=== PATIENT | female | born 1950 | race Caucasian/White ===

== ENCOUNTER 2018-04-19 14:02 | Emergency (ER) | payer OTHER ==
[~2018-04-19] VITALS: Ht 152.4 cm; Wt 90.7 kg
--- NOTE | 2018-04-19 14:15 | ED NECK/BACK PAIN COMPLAINT ---
History of Present Illness General Chief Complaint: Low Back Pain/Injury Stated Complaint: LBP X 2 DAYS Source: patient Exam Limitations: no limitations Triage Note: PT TO ED C/O LOW BACK PAIN SINCE WEDNESDAY. PT WENT TO CHIROPRACTOR "HE DID A LITTLE ZAPPING AND TOLD ME TO ICE IT". PT WENT TO WORK AND PAIN GOT WORSE. DENIES INJURY. HAS BEEN TAKING ALEVE WITH NO RELIEF. Triage Nurses Notes Reviewed? yes Onset: Abrupt Duration: day(s): Timing: recent history Quality/Severity: moderate, severe Location: lumbar spine HPI: 67-year-old female comes into the emergency room for further evaluation of left lower back pain. Symptoms been going on for the past 2 days. Pain is sharp. Continuous. Nonradiating. Patient saw her chiropractor yesterday and today. hE "zaps the area", "massaged it". He told her to ice it. She reports increased pain today at work. Sharp. Continuous. (Boo KRISHNAMURTHY,Henok) Vital Signs & Intake/Output Vital Signs & Intake/Output Vital Signs Date Time Temp Pulse Resp B/P B/P Pulse O2 O2 Flow FiO2 Mean Ox Delivery Rate 04/19 1638 98.5 101 18 145/87 93 Room Air ED Intake and Output 04/20 0000 04/19 1200 Intake Total Output Total Balance Patient 200 lb Weight Weight Reported by Patient Measurement Method Allergies Coded Allergies: Iodinated Contrast- Oral and IV Dye (UNKNOWN 04/21/18) Reconcile Medications Alprazolam 0.25 MG TABLET 0.5 TAB PO BIDP PRN ANXIETY (Reported) Bupropion HCl (Bupropion XL) 150 MG TAB.ER.24H 1 TAB PO QAM MENTAL HEALTH ( Reported) Diazepam (Valium) 5 MG TABLET 1 TAB PO TID PRN back spasms Ketorolac Tromethamine 10 MG TABLET 1 TAB PO Q6P PRN back pain Patient received IM ketorolac in the emergency department Levothyroxine Sodium 100 MCG TABLET 1 TAB PO DAILY AC THYROID (Reported) Montelukast Sodium (Singulair) 10 MG TABLET 1 TAB PO DAILY ALLERGIES ( Reported) Oxycodone HCl/Acetaminophen (Percocet 5-325 MG Tablet) 5 MG-325 MG TABLET 2 TAB PO Q6P PRN pain (Stanley SHEETS,Saravanan Villalobos) Past History Travel History Traveled to [place] past 21 day No Medical History Any Pertinent Medical History? see below for history EENT: allergies Psychiatric: anxiety, depression Endocrine: hypothyroidism Surgical History Surgical History: non-contributory Psychosocial History What is your primary language Wolof Tobacco Use: Quit >30 days ago ETOH Use: denies use Illicit Drug Use: denies illicit drug use Family History Hx Contributory? No (Henok Ayala) Review of Systems Review of Systems Constitutional: Reports: no symptoms. Eyes: Reports: no symptoms. Ears, Nose, Throat, Mouth: Reports: no symptoms. Respiratory: Reports: no symptoms. Cardiovascular: Reports: no symptoms. Gastrointestinal/Abdominal: Reports: no symptoms. Musculoskeletal: Reports: see HPI. Skin: Reports: no symptoms. Neurological/Psychological: Reports: no symptoms. All Other Systems: Reviewed and Negative (Henok Ayala) Physical Exam Physical Exam General Appearance: well developed/nourished, mild distress Head: atraumatic Eyes: Bilateral: normal appearance. Ears, Nose, Throat, Mouth: hearing grossly normal, moist mucous membrane Neck: normal inspection Respiratory: no respiratory distress Back: normal inspection, tenderness left lower back Extremities: normal range of motion Motor: Deficit L4 Right: No Deficit L4 Left: No Deficit L5 Right: No Deficit L5 Left: No Deficit S1 Right: No Deficit S1 Right: No Neurologic/Psych: awake, alert, oriented x 3, normal mood/affect Skin: intact, normal color, warm/dry (Henok Ayala) Core Measures CVA/TIA Diagnosis: No (Stanley SHEETS,Saravanan Villalobos) Progress Differential Diagnosis: cauda equina syn, herniated disc, myofascial strain, sciatica Plan of Care: Orders Procedure Date/time Status URINALYSIS 04/19 1551 Complete Laboratory Tests 04/19/18 1603: Urine Color YEL, Urine Clarity CLEAR, Urine pH 7.0, Ur Specific Maxwell 1.025, Urine Protein NEG, Urine Ketones 40 H, Urine Nitrite NEG, Urine Bilirubin NEG, Urine Urobilinogen 0.2, Ur Leukocyte Esterase NEG, Ur Microscopic EXAM NOT REQUIRED, Urine Hemoglobin NEG, Urine Glucose NEG Diagnostic Imaging: Viewed by Me: CT Scan. Discussed w/RAD: CT Scan. Radiology Impression: PATIENT: CHETAN DEMPSEY PRESENT AGE: 67 PATIENT ACCOUNT NO: [id number] : 51 LOCATION: [facility] ORDERING PHYSICIAN: Henok KRISHNAMURTHY SERVICE DATE: 04/19/18 EXAM TYPE : CAT - CT LUMB SPINE WO IV CONTRAST EXAMINATION: CT LUMBAR SPINE WITHOUT CONTRAST CLINICAL INFORMATION: Low back pain. Left-sided pain. COMPARISON: None TECHNIQUE: Axial images obtained through lumbar spine. Coronal and sagittal reformatted images are performed at the CT scanner. DLP: 899.58 mGy-cm FINDINGS: The vertebrae have normal height and alignment with no fracture or bone destruction. There is no paraspinal soft tissue mass. There is vascular calcifications of the wall of the aorta with no evidence of aneurysm. There is diverticulosis of the visualized colonic bowel loops without bowel wall inflammation. The partially visualized kidneys are unremarkable. SPINAL LEVELS: There are 4 nonrib-bearing lumbar vertebrae. The L5 vertebrae is sacralized with fusion of the transverse process with the sacrum bilaterally. L1-L2: There is near complete loss of height of the vertebrae with vacuum disc phenomenon. There is subchondral sclerosis of bone and endplate spurring of the vertebrae. Facet joints are normal. There is no focal disc protrusion. There is no central canal stenosis. The neural foramina are open. L2-L3: There is near complete loss of height of the vertebrae with vacuum disc phenomenon. There is subchondral sclerosis of bone and endplate spurring of the vertebrae. Facet joints are normal. There is no focal disc protrusion. There is no central canal stenosis. The neural foramina are open. L3-L4: There is near complete loss of height of the vertebrae with vacuum disc phenomenon. There is subchondral sclerosis of bone and endplate spurring of the vertebrae. There is mild facet joint arthrosis. There is no focal disc protrusion. There is mild central canal stenosis. The neural foramina are open. L4-L5: Lumbar disc height is narrowed. There is no focal disc protrusion. There is a slight anterior listhesis of L4 on L5 measuring about 2 mm. This is due to facet joint arthrosis which is marked by joint narrowing, vacuum changes at the joint and subchondral sclerosis and spurring. There is [id number] central canal stenosis. The neural foramina are open. L5-S1: L5 vertebrae is a transitional vertebral body with fusion of the transverse process bilaterally. The neural foramina are open. IMPRESSION: There is advanced multilevel degenerative spondylosis of the spine. There is no focal disc protrusion. There is mild central canal stenosis at L3-L4 and mild-to -moderate central canal stenosis at L4-L5. DICTATED BY: Manuel Barnes MD DATE/ TIME DICTATED:04/19/181532 CLEARING INSPECTOR:JEFF DATE/TIME TRANSCRIBED: 04/19/181532 CONFIDENTIAL, DO NOT COPY WITHOUT APPROPRIATE AUTHORIZATION. < Electronically signed in Other Vendor System> SIGNED BY: Manuel Barnes MD [id number] (Henok Ayala) Departure Departure Disposition: HOME OR SELF CARE Condition: Stable Clinical Impression Primary Impression: Low back pain Referrals: Verónica SHEETS,Mary Cunningham (PCP/Family) Hollis SHEETS,Kelsie Lynn Additional Instructions: Take Percocet Valium and Medrol Dosepak as prescribed. Follow-up with neurosurgeon provided or your orthopedic doctor. Return if any other concerns worsening symptoms. Please go over all results of today's visit with your primary care doctor. Contact your primary care doctor to let them know you were here in the emergency room. There may be nonspecific findings which may not be related to your visit today here in the emergency room but may require further evaluation and chronic monitoring by your primary care doctor. If you had a laceration today the chance of foreign body always remains. You should follow-up with your primary care doctor for recheck in 3-5 days for a wound check. If you had an x-ray done there is a chance that a fracture could have been missed on initial read and you should follow-up with your primary care doctor for repeat x-rays if symptoms persist. If your blood pressure was elevated here in the emergency room please have rechecked by [facility] primary care doctor within the next 48. If you were prescribed a narcotic here in the emergency room or any type of controlled substances you're not allowed to drive while taking this medication or operate any type of heavy machinery. Narcotics can make you feel lightheaded dizziness nausea and can cause constipation. You may need to parts picker a stool softener. Thank you for choosing [facility] emergency room. Please return to the emergency room immediately if you have any other concerns worsening of symptoms. Departure Forms: Customer Survey General Discharge Information Comments 04/19/18 Pain significantly improved. No motor weaknesses. Follow-up with PCP. Return if any concerns worsening symptoms. Patient understands and agrees with plan of care. Nontoxic-appearing. (Henok Ayala) PA/TEMPLATE INSPECTOR Co-Sign Statement Statement: ED Attending supervision documentation- [X] I saw and evaluated the patient. I have also reviewed all the pertinent lab results and diagnostic results. I agree with the findings and the plan of care as documented in the PA's/TEMPLATE INSPECTOR's documentation. X[] I have reviewed the ED Record and agree with the PA's/TEMPLATE INSPECTOR's documentation. [] Additions or exceptions (if any) to the PAs/TEMPLATE INSPECTOR's note and plan are summarized below: [] (Stanley SHEETS,Saravanan Villalobos) [X] I saw and evaluated the patient. I have also reviewed all the pertinent lab results and diagnostic results. I agree with the findings and the plan of care as documented in the PA's/TEMPLATE INSPECTOR's documentation. X[] I have reviewed the ED Record and agree with the PA's/TEMPLATE INSPECTOR's documentation. [] Additions or exceptions (if any) to the PAs/TEMPLATE INSPECTOR's note and plan are summarized below: [] (Stanley SHEETS,Saravanan Villalobos)
--- NOTE | 2018-04-19 16:21 | CT SCAN REPORT ---
EXAMINATION: CT LUMBAR SPINE WITHOUT CONTRAST CLINICAL INFORMATION: Low back pain. Left-sided pain. COMPARISON: None TECHNIQUE: Axial images obtained through lumbar spine. Coronal and sagittal reformatted images are performed at the CT scanner. DLP: 899.58 mGy-cm FINDINGS: The vertebrae have normal height and alignment with no fracture or bone destruction. There is no paraspinal soft tissue mass. There is vascular calcifications of the wall of the aorta with no evidence of aneurysm. There is diverticulosis of the visualized colonic bowel loops without bowel wall inflammation. The partially visualized kidneys are unremarkable. SPINAL LEVELS: There are 4 nonrib-bearing lumbar vertebrae. The L5 vertebrae is sacralized with fusion of the transverse process with the sacrum bilaterally. L1-L2: There is near complete loss of height of the vertebrae with vacuum disc phenomenon. There is subchondral sclerosis of bone and endplate spurring of the vertebrae. Facet joints are normal. There is no focal disc protrusion. There is no central canal stenosis. The neural foramina are open. L2-L3: There is near complete loss of height of the vertebrae with vacuum disc phenomenon. There is subchondral sclerosis of bone and endplate spurring of the vertebrae. Facet joints are normal. There is no focal disc protrusion. There is no central canal stenosis. The neural foramina are open. L3-L4: There is near complete loss of height of the vertebrae with vacuum disc phenomenon. There is subchondral sclerosis of bone and endplate spurring of the vertebrae. There is mild facet joint arthrosis. There is no focal disc protrusion. There is mild central canal stenosis. The neural foramina are open. L4-L5: Lumbar disc height is narrowed. There is no focal disc protrusion. There is a slight anterior listhesis of L4 on L5 measuring about 2 mm. This is due to facet joint arthrosis which is marked by joint narrowing, vacuum changes at the joint and subchondral sclerosis and spurring. There is [id number] central canal stenosis. The neural foramina are open. L5-S1: L5 vertebrae is a transitional vertebral body with fusion of the transverse process bilaterally. The neural foramina are open. IMPRESSION: There is advanced multilevel degenerative spondylosis of the spine. There is no focal disc protrusion. There is mild central canal stenosis at L3-L4 and [id number] central canal stenosis at L4-L5.
[2018-04-19] MEDS ORDERED: PERCOCET 5-3251 EACH PO (16:37)
[2018-04-19] MEDS ORDERED: VALIUM5 M2 PO (16:37)
[2018-04-19] MEDS ORDERED: MEDROL4 M2 PO (16:37)
[2018-04-19 16:38] VITALS: BP 145/87
[2018-04-19] MEDS ORDERED: ZOFRAN ODT4 M1 SL (17:33)
== END 2018-04-19 16:51 ==
LOC: ERH 14:02
DX: M54.5 Low back pain (principal)
CPT/HCPCS: 81003; 96372; 96374; J1885; J3360

== ENCOUNTER 2018-04-21 01:46 | Emergency (ER) | payer OTHER ==
[~2018-04-21 01:46] MED LIST: MEDROL4 M2 PO; PERCOCET 5-3251 EACH PO; VALIUM5 M2 PO; ZOFRAN ODT4 M1 SL
[2018-04-21 04:03] LABS: ABSOLUTE BASOPHIL COUNT 0 /CUMM (0.0-0.2); ABSOLUTE EOSINOPHIL COUNT 0 /CUMM (0.0-0.7); ABSOLUTE GRANULOCYTE CT 6.5 /CUMM (1.4-6.5); ABSOLUTE LYMPH COUNT 0.8 /CUMM (1.2-3.4); ABSOLUTE MONOCYTE COUNT 0.2 /CUMM (0.10-0.60); BASOPHIL % 0.1 % (0.0-2.0); EOSINOPHIL % 0 % (0-5); MEAN CORPUSCULAR HGB 29.8 PG (27.0-31.0); MEAN CORPUSCULAR HGB CONC 33.8 G/DL (33.0-37.0); MEAN CORPUSCULAR VOLUME 88.3 FL (81.0-99.0); MEAN PLATELET VOLUME 8.6 FL (7.4-10.4); PLATELET COUNT 226 /CUMM (130-400); RBC DISTRIBUTION WIDTH 13.7 % (11.5-14.5); RED BLOOD CELL CT 5.11 /CUMM (4.20-5.40); WHITE BLOOD CELL COUNT 7.5 /CUMM (4.8-10.8)
[2018-04-21 04:26] LABS: GRANULOCYTE % 86.5 % (42.2-75.2)
--- NOTE | 2018-04-21 04:34 | ED NECK/BACK PAIN COMPLAINT ---
History of Present Illness General Chief Complaint: Low Back Pain/Injury Stated Complaint: "HIGHER BUTT PAIN" Source: patient, old records Exam Limitations: no limitations Vital Signs & Intake/Output Vital Signs & Intake/Output Vital Signs Date Time Temp Pulse Resp B/P B/P Pulse O2 O2 Flow FiO2 Mean Ox Delivery Rate 04/21 1053 98.2 81 18 138/78 98 Room Air 04/21 0711 98.0 76 18 136/87 98 Room Air 04/21 0410 95 Room Air 04/21 0409 97.0 89 18 134/99 95 Room Air 04/21 0201 97.0 88 18 163/96 96 Room Air Allergies Coded Allergies: Iodinated Contrast- Oral and IV Dye (UNKNOWN 04/21/18) Triage Note: TRIAGE: PATIENT TO ER FROM HOME REPORTING HERE ON 04/19 FOR SAME, "+LOW BACK AND UPPER BUTTOCKS PAIN SINCE WEDNESDAY." REPORTS SAW JASMYN AND IS TAKING VALIUM, PERCOCET AND MEDROL DOSEPAK DIRECTED W/O RELIEF. JASMYN TOLD PATIENT TO RETURN TODAY AT 8AM FOR MRI, "BUT PAIN WAS TOO BAD, I COULDN'T WAIT. ONLY THING THAT HELPED IS DILAUDID." PER PATIENT CT SCAN 04/19 IS +ARTHRITIC. Triage Nurses Notes Reviewed? yes Onset: 3 days Duration: day(s):, constant, continues in ED, getting worse Timing: recent history Quality/Severity: severe, sharpness Location: lumbar spine, paraspinous muscles Radiation: buttocks Context: turning/bending Method of Injury: unknown Loss of Consciousness: no loss of consciousness Modifying Factors: movement, pain medication, rest Associated Symptoms: lower back pain, muscle spasm LMP (ages 10-50): post menopausal : No Patient currently breastfeeds: No HPI: 3 days prior to admission patient complains of increasing left low back pain sharp severe worse with turning bending movement constant. 2 days prior to admission she was evaluated with CT scan demonstrating spinal stenosis degenerative joint disease. Prior to admission medications were not helping her with pain now radiating to the buttock. She denies fever chills nausea vomiting diarrhea abdominal pain chest pain shortness breath headache dysuria rash bleeding change in motor sensory function change in bowel bladder habit. (Kathia SHEETS,Juan Carlos) Reconcile Medications Alprazolam 0.25 MG TABLET 0.5 TAB PO BIDP PRN ANXIETY (Reported) Bupropion HCl (Bupropion XL) 150 MG TAB.ER.24H 1 TAB PO QAM MENTAL HEALTH ( Reported) Diazepam (Valium) 5 MG TABLET 1 TAB PO TID PRN back spasms Ketorolac Tromethamine 10 MG TABLET 1 TAB PO Q6P PRN back pain Patient received IM ketorolac in the emergency department Levothyroxine Sodium 100 MCG TABLET 1 TAB PO DAILY AC THYROID (Reported) Montelukast Sodium (Singulair) 10 MG TABLET 1 TAB PO DAILY ALLERGIES ( Reported) Oxycodone HCl/Acetaminophen (Percocet 5-325 MG Tablet) 5 MG-325 MG TABLET 2 TAB PO Q6P PRN pain (Cathy SHEETS,James James) Past History Travel History Traveled to [place] past 21 day No Medical History Any Pertinent Medical History? see below for history Neurological: NONE EENT: allergies Cardiovascular: NONE Respiratory: NONE Gastrointestinal: NONE Hepatic: NONE Renal: NONE Musculoskeletal: NONE Psychiatric: anxiety, depression Endocrine: hypothyroidism Blood Disorders: NONE Cancer(s): NONE SOCK DRIER/Reproductive: NONE Surgical History Surgical History: non-contributory Psychosocial History What is your primary language Swedish Tobacco Use: Quit >30 days ago Family History Hx Contributory? No (Juan Carlos Bae MD) Review of Systems Review of Systems Constitutional: Reports: no symptoms. Eyes: Reports: no symptoms. Ears, Nose, Throat, Mouth: Reports: no symptoms. Respiratory: Reports: no symptoms. Cardiovascular: Reports: no symptoms. Gastrointestinal/Abdominal: Reports: no symptoms. Musculoskeletal: Reports: see HPI, back pain. Skin: Reports: no symptoms. Neurological/Psychological: Reports: no symptoms. All Other Systems: Reviewed and Negative (Juan Carlos Bae MD) Physical Exam Physical Exam General Appearance: well developed/nourished, alert, awake, anxious, severe distress, obese Head: atraumatic, normal appearance Eyes: Bilateral: normal appearance, PERRL, EOMI, normal inspection. Ears, Nose, Throat, Mouth: hearing grossly normal, moist mucous membrane Neck: normal inspection, supple, full range of motion, normal alignment Respiratory: normal breath sounds, chest non-tender, no respiratory distress, quiet respiration, lungs clear Cardiovascular: regular rate/rhythm, normal peripheral pulses, norml femoral pulses equa Peripheral Pulses: 4+ carotid (R), 4+ carotid (L) Gastrointestinal: normal bowel sounds, soft, non-tender, no organomegaly Back: normal inspection, normal range of motion, no vertebral tenderness Extremities: non-tender, normal range of motion Straight Leg Raising: Right: Pain at ____ degrees (5). Left: Pain at ____ degrees (5). Sensory: Medial Le: L4R, L4L. Top of Foot: 2: L5R, L5L. Sole of Foot: 2: SIR, CHAYO. Motor: Deficit L4 Right: No Deficit L4 Left: No Deficit L5 Right: No Deficit L5 Left: No Deficit S1 Right: No Deficit S1 Right: No DTR: Deficit L4 Left: No Deficit L4 Right: No Deficit S1 Left: No Deficit S1 Right: No Patellar: 3: L4 Right, L4 Left. 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 nml as tested Skin: intact, normal color, warm/dry Core Measures CVA/TIA Diagnosis: No (Juan Carlos Bae MD) Progress Differential Diagnosis: herniated disc, myofascial strain, sciatica Plan of Care: Orders Procedure Date/time Status MAGNESIUM 04/21 338 Complete COMPREHENSIVE METABOLIC PANEL 04/21 338 Complete CBC WITHOUT DIFFERENTIAL 04/21 338 Complete Laboratory Tests 04/21/18 0439: Anion Gap 9, Estimated GFR > 60, BUN/Creatinine Ratio 24.0, Glucose 137 H, Calcium 9.0, Magnesium 2.1, Total Bilirubin 0.4, AST 27, ALT 56 H, Alkaline Phosphatase 86, Total Protein 6.9, Albumin 4.0, Globulin 2.9, Albumin/Globulin Ratio 1.4 04/21/18 0349: CBC w Diff NO MAN DIFF REQ, RBC 5.11, MCV 88.3, MCH 29.8, MCHC 33.8, RDW 13.7, MPV 8.6, Gran % 86.5 H, Lymphocytes % 10.9 L, Monocytes % 2.5, Eosinophils % 0 , Basophils % 0.1, Absolute Granulocytes 6.5, Absolute Lymphocytes 0.8 L, Absolute Monocytes 0.2, Absolute Eosinophils 0, Absolute Basophils 0 Hand-Off Endorsed To: James Morgan MD Endorsed Time: 0700 Pending: MRI (Juan Carlos Bae MD) Radiology Impression: PATIENT: CHETAN DEMPSEY PRESENT AGE: 67 PATIENT ACCOUNT NO: [id number] : 51 LOCATION: [facility] ORDERING PHYSICIAN: Juan Carlos Bae MD SERVICE DATE: 04/21/18 EXAM TYPE: MRI - MRI-LUMBAR SPINE EXAMINATION: MR LUMBAR SPINE WITHOUT CONTRAST CLINICAL INFORMATION: Intractable lumbar pain with radiculopathy to left leg. COMPARISON: CT scan 04/19/2018. TECHNIQUE: MRI of the lumbar spine without contrast was obtained using routine sequences. FINDINGS: VERTEBRAL BODIES AND PARASPINAL STRUCTURES: The study redemonstrates the transitional vertebra at the lumbar sacral junction with partial sacralization of L5. Lowermost fully formed intervertebral disc be designated L5-S1, corresponding to the vertebral body numbering on the previous CT scan. There is a mild grade 1 anterolisthesis of L4 and L5. There is a mild retrolisthesis of L3 on L4. There is narrowing of intervertebral disc height at L1-L2, L2-L3 and L3-L4. There are degenerative endplate signal and contour changes with edema, most prominent toward the right at L2-L3 and toward the left at L3-L4. There are fatty endplate changes anteriorly at T11-T12. There are multilevel Schmorl's nodes. Vertebral body heights are maintained. There are no compression fractures. Overall, marrow is homogenous. The visualized retroperitoneal and pelvic structures are unremarkable. CONUS MEDULLARIS AND CAUDA EQUINA: Normal, terminating at the level of L1. The lower thoracic spinal cord appears normal. The cauda equina nerve roots and filum terminale appear normal. SPINAL LEVELS: T12-L1: There is a broad-based posterior disc protrusion which effaces CSF ventral to the conus. There is a left foraminal disc protrusion with likely impingement on the exiting left T12 nerve root. There is no central stenosis. L1-L2: There is mild bilateral facet arthropathy. There is a broad-based posterior disc protrusion extending into the left greater than right neural foramina. There is impingement on the exiting left L1 nerve root. There is narrowing of the bilateral subarticular recesses. There is no central stenosis. L2-L3: There is mild bilateral facet arthropathy. There is a broad-based posterior disc protrusion extending into the right greater than left neural foramina. There is impingement on the exiting right greater than left L2 nerve roots. There is narrowing of the bilateral subarticular recesses. There is mild central stenosis. L3-L4: There is moderate bilateral facet arthropathy with ligamenta flava hypertrophy. There is a posterior disc protrusion extending into the inferior neural foramina bilaterally, with impingement on the exiting L3 nerve roots. There is moderate to severe narrowing of the subarticular recesses bilaterally and there is mild to moderate central stenosis. L4-L5: There is unroofing of the disc as a result of the anterolisthesis. There is severe bilateral facet arthropathic changes. There are bilateral foraminal disc protrusions without nerve root compression. There is narrowing of the subarticular recesses bilaterally. There is moderate central stenosis. L5-S1: There is mild bilateral facet arthropathy. Posterior disc contour is normal. There is no central stenosis or foraminal narrowing. IMPRESSION: 1. The study redemonstrates a transitional vertebra at the lumbosacral junction with partial sacralization of L5. 2. There is a grade 1 anterolisthesis of L4 on L5. There is narrowing of the subarticular recesses with moderate central stenosis. 3. At L3-L4 there is a posterior disc protrusion extending into the neural foramina bilaterally with impingement on the exiting L3 nerve roots. There is subarticular recess narrowing and there is mild to moderate central stenosis. 4. At L2-L3 there is a disc protrusion extending into the neural foramina bilaterally with impingement on the right greater than left exiting L2 nerve roots. There is narrowing of the subarticular recesses. 5. Spondylitic changes are also demonstrated at T12-L1 and L1-L2 as described above. DICTATED BY: Keon Richardson MD DATE/TIME DICTATED:04/21/[address] MAGISTRATE:JEFF DATE/TIME TRANSCRIBED:04/21/18851 CONFIDENTIAL, DO NOT COPY WITHOUT APPROPRIATE AUTHORIZATION. <Electronically signed in Other Vendor System> SIGNED BY: Keon Richardson MD 04/21/18 0913 Comments: 04/21/2018 12:28:16 PM Kamilla seems to have improved and has been ambulatory here in the emergency department. It had a lengthy discussion about treating her at home because she is concerned that her pain typically worsens at night. She will try outpatient therapy one more time. (Cathy SHEETS,James James) Departure Departure Departure Forms: Customer Survey General Discharge Information (Kathia SHEETS,Juan Carlos) Departure Disposition: HOME OR SELF CARE Condition: Stable Clinical Impression Primary Impression: Spinal stenosis of lumbar region Qualifiers: Neurogenic claudication status: unspecified Qualified Code: M48.061 - Spinal stenosis, lumbar region without neurogenic claudication Referrals: Verónica SHEETS,Mary Cunningham (PCP/Family) Dean SHEETS,Pan Mota Additional Instructions: Percocet, prednisone, Valium and ketorolac as needed for back pain. Follow-up with a neurosurgeon as soon as possible for reevaluation (Dr. Shafer or Dr. Moran). Notify your primary care doctor of this emergency department visit and treatment plan. Return if any concerns or sudden worsening. Please note that there might be incidental findings in your evaluation that are unrelated to the current emergency department visit. Please notify your primary care doctor about this emergency department visit in order to obtain and review all of the testing performed so that these incidental findings can be monitored as needed. If you had an x-ray performed, please understand that some fractures or other findings may not be seen on the initial set of x-rays. If your symptoms persist you might need a repeat set of x-rays to check for such a fracture. If you had a laceration evaluated, please understand that foreign bodies such as glass or wood may not be visible to the naked eye or on plain x-rays. If the wound becomes red, swollen, increasingly more painful or if there is any drainage from the wound, please have it reevaluated by a physician for the possibility of a retained foreign body. If you're unable to follow up as outlined in the discharge instructions please return to the emergency department. Thank you for choosing the [facility] Emergency Department for your care. It was a pleasure to serve you today. James Morgan M.D. [facility] Prescriptions: Current Visit Scripts Oxycodone HCl/Acetaminophen (Percocet 5-325 MG Tablet) 2 TAB PO Q6P PRN pain #16 TAB Diazepam (Valium) 1 TAB PO TID PRN back spasms #10 TAB Ketorolac Tromethamine 1 TAB PO Q6P PRN back pain #16 TAB Patient received IM ketorolac in the emergency department (Cathy SHEETS,James James)
[2018-04-21] MEDS ORDERED: SINGULAIR10 M1 PO (07:50)
[2018-04-21] MEDS ORDERED: LEVOTHYROXINE100 MC1 PO (07:51)
[2018-04-21] MEDS ORDERED: BUPROPION XL150 MG PO (07:51)
[2018-04-21] MEDS ORDERED: ALPRAZOLAM0.25 M1 PO (07:52)
--- NOTE | 2018-04-21 09:13 | MRI REPORT ---
EXAMINATION: MR LUMBAR SPINE WITHOUT CONTRAST CLINICAL INFORMATION: Intractable lumbar pain with radiculopathy to left leg. COMPARISON: CT scan 04/19/2018. TECHNIQUE: MRI of the lumbar spine without contrast was obtained using routine sequences. FINDINGS: VERTEBRAL BODIES AND PARASPINAL STRUCTURES: The study redemonstrates the transitional vertebra at the lumbar sacral junction with partial sacralization of L5. Lowermost fully formed intervertebral disc be designated L5-S1, corresponding to the vertebral body numbering on the previous CT scan. There is a mild grade 1 anterolisthesis of L4 and L5. There is a mild retrolisthesis of L3 on L4. There is narrowing of intervertebral disc height at L1-L2, L2-L3 and L3-L4. There are degenerative endplate signal and contour changes with edema, most prominent toward the right at L2-L3 and toward the left at L3-L4. There are fatty endplate changes anteriorly at T11-T12. There are multilevel Schmorl's nodes. Vertebral body heights are maintained. There are no compression fractures. Overall, marrow is homogenous. The visualized retroperitoneal and pelvic structures are unremarkable. CONUS MEDULLARIS AND CAUDA EQUINA: Normal, terminating at the level of L1. The lower thoracic spinal cord appears normal. The cauda equina nerve roots and filum terminale appear normal. SPINAL LEVELS: T12-L1: There is a broad-based posterior disc protrusion which effaces CSF ventral to the conus. There is a left foraminal disc protrusion with likely impingement on the exiting left T12 nerve root. There is no central stenosis. L1-L2: There is mild bilateral facet arthropathy. There is a broad-based posterior disc protrusion extending into the left greater than right neural foramina. There is impingement on the exiting left L1 nerve root. There is narrowing of the bilateral subarticular recesses. There is no central stenosis. L2-L3: There is mild bilateral facet arthropathy. There is a broad-based posterior disc protrusion extending into the right greater than left neural foramina. There is impingement on the exiting right greater than left L2 nerve roots. There is narrowing of the bilateral subarticular recesses. There is mild central stenosis. L3-L4: There is moderate bilateral facet arthropathy with ligamenta flava hypertrophy. There is a posterior disc protrusion extending into the inferior neural foramina bilaterally, with impingement on the exiting L3 nerve roots. There is moderate to severe narrowing of the subarticular recesses bilaterally and there is mild to moderate central stenosis. L4-L5: There is unroofing of the disc as a result of the anterolisthesis. There is severe bilateral facet arthropathic changes. There are bilateral foraminal disc protrusions without nerve root compression. There is narrowing of the subarticular recesses bilaterally. There is moderate central stenosis. L5-S1: There is mild bilateral facet arthropathy. Posterior disc contour is normal. There is no central stenosis or foraminal narrowing. IMPRESSION: 1. The study redemonstrates a transitional vertebra at the lumbosacral junction with partial sacralization of L5. 2. There is a grade 1 anterolisthesis of L4 on L5. There is narrowing of the subarticular recesses with moderate central stenosis. 3. At L3-L4 there is a posterior disc protrusion extending into the neural foramina bilaterally with impingement on the exiting L3 nerve roots. There is subarticular recess narrowing and there is mild to moderate central stenosis. 4. At L2-L3 there is a disc protrusion extending into the neural foramina bilaterally with impingement on the right greater than left exiting L2 nerve roots. There is narrowing of the subarticular recesses. 5. Spondylitic changes are also demonstrated at T12-L1 and L1-L2 as described above.
[2018-04-21] MEDS ORDERED: PERCOCET 5-3251 EACH PO (13:33)
[2018-04-21] MEDS ORDERED: KETOROLAC TROME10 M1 PO (13:33)
[2018-04-21] MEDS ORDERED: VALIUM5 M2 PO (13:33)
[2018-04-21 13:40] VITALS: BP 138/84
== END 2018-04-21 13:41 ==
LOC: ERH 01:46
PROVIDERS: Emergency Medicine
DX: M48.061 Spinal stenosis, lumbar region without neurogenic claudication (principal); E03.9 Hypothyroidism, unspecified; F41.9 Anxiety disorder, unspecified
CPT/HCPCS: 72148; 96372; 96374; 96375; J1885; J3101